=== PATIENT | female | born 1965 | race Caucasian/White ===

== ENCOUNTER 2023-03-12 13:40 | Emergency (ER) | payer OTHER ==
[2023-03-12 14:00] VITALS: BP 137/89; PULSE 82; RESP 16; TEMP 97.9; BMI 23.1
== END 2023-03-12 14:46 | disposition home or self-care (01) ==
LOC: FER 13:40
DX: M25.571 Pain in right ankle and joints of right foot (principal); S93.401A Sprain of unspecified ligament of right ankle, initial encounter; X50.0XXA Overexertion from strenuous movement or load, initial encounter
CPT/HCPCS: 73610-TC-RT-FY; 73630-TC-RT-FY; 99283-25